=== PATIENT | female | born 1960 | race Caucasian/White ===

== ENCOUNTER 2018-09-15 19:14 | Emergency (ER) | payer BC ==
--- NOTE | 2018-09-15 20:12 | EDM.PDOC ---
ED HPI GENERAL MEDICAL PROBLEM - General Chief Complaint: Gastrointestinal Problem Stated Complaint: COUGHING UP BLOOD Time Seen by Provider: 09/15/18 19:40 Source of Information: Reports: Patient, Family History Limitations: Reports: No Limitations - History of Present Illness INITIAL COMMENTS - FREE TEXT/NARRATIVE: c/o cough up blood pt with a chronic smoker's cough, inc'd x 2d, at 4 PM she coughed up some pink sputum smokes 1.5 ppd, h/o pneumonia in past has had flu vax yearly, has had pneumonia vax no f/c/d, no rhinorrhea had pain at her L ribs posteriorly since last night, inc'd with cough, had massage her back earlier today h/o various pain complaints in past PMH: h/o htn, no other CV hx PSH includes ventral hernia x 7 including mesh SH: on disability, 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 labs: did have BS >200 the last 2 times it was checked Back pain Pain Score (Numeric/FACES): 7 - Related Data Allergies Allergy/AdvReac Type Severity Reaction Status Date / Time morphine Allergy Itching Verified 09/15/18 19:30 Home Meds: Home Meds Omeprazole Magnesium [Prilosec Otc] 20 mg PO DAILY 06/01/13 [History] rOPINIRole HCl [Requip] 1 mg PO TID 06/01/13 [History] Lisinopril 10 mg PO DAILY 04/21/16 [History] Cyclobenzaprine [Flexeril] 10 mg PO TID 07/30/16 [History] Celecoxib 200 mg PO DAILY 09/15/18 [History] DULoxetine [Cymbalta] 30 mg PO DAILY 09/15/18 [History] Dicyclomine [Bentyl] 20 mg PO QID PRN 09/15/18 [History] Hyoscyamine [Levsin] 0.375 mg PO BID 09/15/18 [History] Ondansetron HCl [Zofran] 4 mg PO Q4H PRN 09/15/18 [History] Past Medical History HEENT History: Reports: Impaired Vision Cardiovascular History: Reports: Other (See Below) Other Cardiovascular History: states that has hx of chest pein before but not as intense as of today. Other Gastrointestinal History: Pt stated she has several ulcers [employer] History: Reports: - Past Surgical History HEENT Surgical History: Reports: Tonsillectomy GI Surgical History: Reports: Bariatric Procedure, Cholecystectomy, Hernia Repair/Other, Other (See Below) Other GI Surgeries/Procedures: Gastric revision Female Surgical History: Reports: Hysterectomy Social & Family History - Family History Family Medical History: Noncontributory Cardiac: Reports: Other (See Below) Other Cardiac Family History: states that cardiac problems run in their family. - Tobacco Use Smoking Status *Q: Current Every Day Smoker Years of Tobacco use: 44 Packs/Tins Daily: 1.5 - Caffeine Use Caffeine Use: Reports: Coffee - Recreational Drug Use Recreational Drug Use: No - Living Situation & Occupation Living situation: Reports: ED ROS GENERAL - Review of Systems Review Of Systems: See Below Constitutional: Reports: No Symptoms. Denies: Fever, Chills, Malaise, Weakness , Diaphoresis HEENT: Reports: No Symptoms Respiratory: Reports: Pleuritic Chest Pain, Cough, Hemoptysis Cardiovascular: Reports: No Symptoms Endocrine: Reports: No Symptoms GI/Abdominal: Reports: No Symptoms : Reports: No Symptoms Musculoskeletal: Reports: No Symptoms Skin: Reports: No Symptoms Neurological: Reports: No Symptoms Psychiatric: Reports: No Symptoms Hematologic/Lymphatic: Reports: No Symptoms Immunologic: Reports: No Symptoms ED EXAM, GENERAL - Physical Exam Exam: See Below Exam Limited By: No Limitations General Appearance: Alert, WD/WN, No Apparent Distress, Other (alert, no cough observed, no dyspnea, mild tachy, talk complete sentences, no splinting) Eye Exam: Bilateral Eye: EOMI, Normal Inspection, PERRL Nose: Normal Mucosa, Other (some crusting mucus at L nares). No: Nasal Swelling Throat/Mouth: Normal Inspection, Normal Lips, Normal Teeth, Normal Gums, Normal Oropharynx, Normal Voice, No Airway Compromise Head: Atraumatic, Normocephalic Neck: Normal Inspection, Supple, Non-Tender, Full Range of Motion. No: Lymphadenopathy (R), Lymphadenopathy (L) Respiratory/Chest: No Respiratory Distress, Other (fair AE, no inc'd exp phase, scattered slight wheeze, no rales) Cardiovascular: Regular Rate, Rhythm, No JVD, No Rub GI/Abdominal: Soft, Non-Tender, No Distention Back Exam: Normal Inspection, Full Range of Motion. No: CVA Tenderness (R), CVA Tenderness (L) Extremities: Normal Inspection, Normal Range of Motion, Non-Tender, Other (3+ edema to knees b/l, trace edema to groin b/l, symmetric) Neurological: Alert, Oriented, CN II-XII Intact, Normal Cognition, No Motor/ Sensory Deficits Psychiatric: Normal Affect, Normal Mood Skin Exam: Warm, Dry, Intact, Normal Color, No Rash Lymphatic: No Adenopathy Course - Vital Signs Last Recorded V/S: Last Vital Signs Temp 36.3 C 09/15/18 22:12 Pulse 111 H 09/15/18 22:12 Resp 18 09/15/18 22:12 BP 92/48 L 09/15/18 22:12 Pulse Ox 96 09/15/18 22:12 - Orders/Labs/Meds Orders: Active Orders 24 hr Category Date Time Status Chest 2V [CR] Stat Exams 09/15/18 19:58 Ordered Chest w wo Cont [CT] Stat Exams 09/15/18 21:03 Ordered Sodium Chloride 0.9% [Saline Flush] Med 09/15/18 20:15 Active 10 ml FLUSH ASDIRECTED PRN EKG 12 Lead [EK] Routine Ther 09/15/18 19:58 Ordered Medication Orders Sodium Chloride (Saline Flush) 10 ml FLUSH ASDIRECTED PRN PRN Reason: IV Use Last Admin: 09/15/18 21:12 Dose: 10 ml Admin: 09/15/18 20:15 Dose: 10 ml Labs: Laboratory Tests 09/15/18 09/15/18 09/15/18 Range/Units 20:17 20:17 20:17 WBC 6.6 (4.5-12.0) X10-3/uL RBC 4.39 (3.23-5.20) x10(6)uL Hgb 13.4 (11.5-15.5) g/dL Hct 40.0 (30.0-51.3) % MCV 91.1 (80-96) fL MCH 30.6 (27.7-33.6) pg MCHC 33.6 (32.2-35.4) g/dL RDW 13.7 (11.5-15.5) % Plt Count 237 (125-369) X10(3)uL MPV 7.6 (7.4-10.4) fL Add Manual Diff Yes Neutrophils % (Manual) 89 H (46-82) % Lymphocytes % (Manual) 4 L (13-37) % Monocytes % (Manual) 7 (4-12) % PT 10.4 (8.7-11.1) INR 1.07 (0.89-1.13) D-Dimer, Quantitative 0.90 H (0.0-0.59) mg/LFEU Sodium 138 (135-145) mmol/L Potassium 3.6 (3.5-5.3) mmol/L Chloride 104 (100-110) mmol/L Carbon Dioxide 22 (21-32) mmol/L BUN 18 (7-18) mg/dL Creatinine 0.9 (0.55-1.02) mg/dL Est Cr Clr Drug Dosing 69.14 mL/min Estimated GFR (MDRD) > 60 (>60) BUN/Creatinine Ratio 20.0 (9-20) Glucose 156 H (80-116) mg/dL Calcium 7.7 L (8.6-10.2) mg/dL Total Bilirubin 0.3 (0.1-1.3) mg/dL AST 14 (5-25) IU/L ALT 12 (12-36) U/L Alkaline Phosphatase 81 (56-112) IU/L Troponin I (<0.017-0.056) ng/mL C-Reactive Protein (0.5-0.9) mg/dL NT-Pro-B Natriuret Pep (<=125) pg/mL Total Protein 5.1 L (6.0-8.0) g/dL Albumin 2.0 L (3.5-5.2) g/dL Globulin 3.1 g/dL Albumin/Globulin Ratio 0.7 // Range/Units 20:17 WBC (4.5-12.0) X10-3/uL RBC (3.23-5.20) x10(6)uL Hgb (11.5-15.5) g/dL Hct (30.0-51.3) % MCV (80-96) fL MCH (27.7-33.6) pg MCHC (32.2-35.4) g/dL RDW (11.5-15.5) % Plt Count (125-369) X10(3)uL MPV (7.4-10.4) fL Add Manual Diff Neutrophils % (Manual) (46-82) % Lymphocytes % (Manual) (13-37) % Monocytes % (Manual) (4-12) % PT (8.7-11.1) INR (0.89-1.13) D-Dimer, Quantitative (0.0-0.59) mg/LFEU Sodium (135-145) mmol/L Potassium (3.5-5.3) mmol/L Chloride (100-110) mmol/L Carbon Dioxide (21-32) mmol/L BUN (7-18) mg/dL Creatinine (0.55-1.02) mg/dL Est Cr Clr Drug Dosing mL/min Estimated GFR (MDRD) (>60) BUN/Creatinine Ratio (9-20) Glucose (80-116) mg/dL Calcium (8.6-10.2) mg/dL Total Bilirubin (0.1-1.3) mg/dL AST (5-25) IU/L ALT (12-36) U/L Alkaline Phosphatase (56-112) IU/L Troponin I 0.019 (<0.017-0.056) ng/mL C-Reactive Protein 6.1 H* (0.5-0.9) mg/dL NT-Pro-B Natriuret Pep 875 H (<=125) pg/mL Total Protein (6.0-8.0) g/dL Albumin (3.5-5.2) g/dL Globulin g/dL Albumin/Globulin Ratio Meds: Medications Generic Name Dose Route Start Last Admin Trade Name Freq PRN Reason Stop Dose Admin Sodium Chloride 10 ml 09/15/18 20:15 09/15/18 21:12 Saline Flush FLUSH 10 ml ASDIRECTED PRN Administration IV Use Discontinued Medications Generic Name Dose Route Start Last Admin Trade Name Freq PRN Reason Stop Dose Admin Azithromycin 500 mg 09/15/18 22:08 09/15/18 22:29 Zithromax PO 09/15/18 22:09 500 mg ONETIME ONE Administration Ceftriaxone Sodium 1 gm 09/15/18 22:27 09/15/18 22:29 Rocephin IVPUSH 09/15/18 22:28 1 gm ONETIME ONE Administration Sodium Chloride 1,000 mls @ 999 mls/hr 09/15/18 20:24 09/15/18 20:34 Normal Saline IV 09/15/18 21:24 999 mls/hr .BOLUS ONE Administration Sodium Chloride 1,000 mls @ 999 mls/hr 09/15/18 20:08 09/15/18 22:23 Normal Saline IV 09/15/18 21:08 999 mls/hr .BOLUS ONE Administration Ceftriaxone Sodium 1 gm/ 100 mls @ 200 mls/hr 09/15/18 22:07 09/15/18 22:30 Sodium Chloride IVPUSH 09/15/18 22:36 Not Given ONETIME ONE Iopamidol 75 ml 09/15/18 21:03 09/15/18 21:27 Isovue-370 (76%) IV 09/15/18 21:04 75 ml ONETIME ONE Administration Ketorolac Tromethamine 30 mg 09/15/18 22:20 09/15/18 22:28 Toradol IVPUSH 09/15/18 22:21 30 mg ONETIME ONE Administration Lorazepam 0.5 mg 09/15/18 21:07 09/15/18 21:11 Ativan IVPUSH 09/15/18 21:08 0.5 mg ONETIME ONE Administration - Re-Assessments/Exams Free Text/Narrative Re-Assessment/Exam: 09/15/18 22:12 CxR 2v with [place] density of 70 x 72 mm suspicious for CA in setting of no fever and normal WBC chest CT with and without contrast shows consiolidation nodularity suspicious for pneumonia as per radiologist altho pul hemorrhage and malignancy are considerations will send to [facility] for pul consult for possible bronchoscopy and for CV consults for elevated BNP pt and agree will give azithro 500 mg PO and ceftriaxone 1 gm IV here call placed to [facility] 09/15/18 22:44 d/w Dr Lyons who accepted pt in transfer to [facility] Departure - Departure Time of Disposition: 22:45 Disposition: DC/Tfer to Acute Hospital 02 Condition: Fair Clinical Impression: Left upper lobe consolidation, Hypoxia, Elevated brain natriuretic peptide (BNP ) level, Peripheral edema, Hemoptysis, Current smoker, Hypoalbuminemia, Left shift, Elevated C-reactive protein (CRP) - Discharge Information *PRESCRIPTION DRUG MONITORING PROGRAM REVIEWED*: Not Applicable *COPY OF PRESCRIPTION DRUG MONITORING REPORT IN PATIENT ALIN: Not Applicable Referrals: Abhishek De La Torre MD [Primary Care Provider] - Forms: ED Department Discharge - My Orders Last 24 Hours: My Active Orders 09/15/18 19:58 Chest 2V [CR] Stat EKG 12 Lead [EK] Routine 09/15/18 20:15 Sodium Chloride 0.9% [Saline Flush] 10 ml FLUSH ASDIRECTED PRN 09/15/18 21:03 Chest w wo Cont [CT] Stat - Assessment/Plan Last 24 Hours: My Active Orders 09/15/18 19:58 Chest 2V [CR] Stat EKG 12 Lead [EK] Routine 09/15/18 20:15 Sodium Chloride 0.9% [Saline Flush] 10 ml FLUSH ASDIRECTED PRN 09/15/18 21:03 Chest w wo Cont [CT] Stat
[2018-09-15] MEDS: Sodium Chloride 0.9% 10 ML Syringe FLUSH PRN ×2 (20:15→21:12)
[2018-09-15] MEDS ORDERED: Sodium Chloride 0.9% 1,000 ML IV ONE ×2 (20:24→23:35)
[2018-09-15] MEDS ORDERED: Iopamidol 755 Mg/ML 75 ML Bottle IV ONE (21:03)
[2018-09-15] MEDS ORDERED: LORazepam 2 MG/ML SDV IVPUSH ONE (21:07)
[2018-09-15] MEDS: Sodium Chloride 0.9% 1,000 ML IV ONE ×2 (21:13→22:23)
[2018-09-15] MEDS ORDERED: cefTRIAXone 1 GM in Sodium Chloride 0.9% 100 ML IVPUSH ONE (22:07)
[2018-09-15] MEDS ORDERED: Azithromycin 500 MG Tab PO ONE (22:08)
[2018-09-15] MEDS ORDERED: Ketorolac 30 MG/ML SDV IVPUSH ONE (22:20)
[2018-09-15] MEDS ORDERED: cefTRIAXone 1 GM Vial IVPUSH ONE (22:27)
[2018-09-15 23:49] VITALS: BP 89/58
--- NOTE | 2018-09-16 15:04 | CR ---
INDICATION: Hemoptysis. CHEST: PA and lateral views of the chest with two PA views were obtained, 09/15, and compared with 10/02/17 and 04/21/16. There is now noted infiltration, which is consolidating in the posterior basilar segment of the left upper lobe and also the anterior basilar perihilar anteriorly. Followup to clearing is recommended to exclude a central lesion. There is a slight bulge at the aortopulmonary window, which does appear to be new, compared with the previous study. CT of the chest may be warranted if this infiltrate does not rapidly resolve with treatment. No definite pleuritis was seen. No other active areas of infiltrate were identified. The heart remains normal in size and shape. The aorta is tortuous with calcification in the arch and descending portion. Bony structures appear to be grossly intact, except to note a mild dextroconvex scoliosis of the lower middle thoracic spine. IMPRESSION: Fairly extensive areas of infiltration, mostly in the posterior basilar segment area of the left upper lobe but also anteriorly in the anterior basilar segment. The presence of a bulge at the aortopulmonary window on the left raises question of a central lesion. Followup is recommended, and if rapid clearing does not occur, CT without and with IV contrast is recommended. MTDD
== END 2018-09-16 00:06 ==
LOC: FB.ED 19:14
DX: J18.1 Lobar pneumonia, unspecified organism (principal); R04.2 Hemoptysis; R09.02 Hypoxemia; R79.89 Other specified abnormal findings of blood chemistry; R60.9 Edema, unspecified; E88.09 Other disorders of plasma-protein metabolism, not elsewhere classified; R79.82 Elevated C-reactive protein (CRP); F17.210 Nicotine dependence, cigarettes, uncomplicated; Z88.5 Allergy status to narcotic agent; Z79.899 Other long term (current) drug therapy
CPT/HCPCS: 36415; 71046; 71270; 80053; 83880; 84484; 85025; 85379; 85610; 86140; 87804 ×2; 93005; 96361; 96374; 96375; 99285; A9270; J0696; J1885; J2060; J7030 ×3; Q9967

== ENCOUNTER 2018-10-13 07:19 | Emergency (ER) | payer BC ==
[2018-10-13] MEDS ORDERED: Rocuronium 100 MG/10 ML MDV IV ONE (07:20)
[2018-10-13] MEDS ORDERED: Furosemide 40 MG/4 ML VIAL ONE ×3 (07:28→08:14)
[2018-10-13] MEDS ORDERED: Etomidate 2 MG/ML 20 ML SDV IVPUSH ONE (07:30)
[2018-10-13] MEDS ORDERED: Albuterol/Ipratropium 3.0-0.5 MG/3 ML Neb Soln NEB ONE (07:30)
[2018-10-13] MEDS ORDERED: Furosemide 40 MG/4 ML VIAL IVPUSH ONE ×3 (07:30→08:15)
[2018-10-13] MEDS ORDERED: Rocuronium Bromide 50 MG/5 ML Syringe IVPUSH ONE (07:30)
[2018-10-13] MEDS ORDERED: Albuterol/Ipratropium 3.0-0.5 MG/3 ML Neb Soln ONE (07:49)
[2018-10-13] MEDS ORDERED: Dextrose 5%-0.225% NaCl w/KCl 1,000 ML IV SCH (08:00)
[2018-10-13] MEDS ORDERED: Midazolam 1 MG/ML 2 ML SDV ONE (08:06)
[2018-10-13] MEDS ORDERED: Albuterol 8 GM Inhaler INH ONE (08:08)
[2018-10-13] MEDS ORDERED: Midazolam 1 MG/ML 2 ML SDV IVPUSH ONE (08:08)
[2018-10-13] MEDS ORDERED: fentaNYL 100 MCG/2 ML SDV ONE (08:17)
[2018-10-13] MEDS ORDERED: Cefepime 2 GM Vial IVPUSH ONE (08:17)
[2018-10-13] MEDS ORDERED: fentaNYL 100 MCG/2 ML SDV IVPUSH ONE (08:18)
[2018-10-13] MEDS ORDERED: Potassium Chloride 20 MEQ in Premix Bag 1 BAG IV ONE (08:40)
--- NOTE | 2018-10-13 08:41 | EDM.PDOC ---
ED HPI GENERAL MEDICAL PROBLEM - General Stated Complaint: SOB COUGHING Time Seen by Provider: 10/13/18 07:20 Source of Information: Reports: Patient History Limitations: Reports: Respiratory Distress - History of Present Illness INITIAL COMMENTS - FREE TEXT/NARRATIVE: c/o sob and coughing up blood pt in ICU at [facility] x 2w, intubated, dx of sepsis, home x 10d, on O2 for the first time inc'd SOB during night per , talking in 4-5 word sentences on arrival and tripoding, later after intubation pt brought up pink frothy sputum pt electively intubated on arrival with 7/0 ET and [place] scope on first pass with good AE b/l after 30 mg etomidate IV and 100 mg succinylcholine IV, ET secured, end CO2 30 anesthesia arrived shortly after intubation and provided additional resp management, ET tube 2.5 cm above arnel CxR with old large infiltrate at [place] and new large infiltrate at RUL has peribronchial cuffing and smallest amount of blunting at the CVAs bhardwaj placed with 200 cc urine output, had another 150 UO after furosemide 40 mg IV x 2 NG placed given additional furosemide 80 mg IV, pt had a total of 500 cc UO at time of transfer at 8:40 AM d/w Dr Jurado at ICU at [facility] who had taken care of her previously BC x 2 obtained prior to giving her cefepime 2 gm IV venous pH 7.24 and pCO2 56 obtained just prior to intubation BP inc'd initial, improved to 138/74 after meds and intubation, at 150/80 at time of transfer max HR 129, HR 115 at time of transfer KCl 20 meq hung at rate of 10 meq/hr for K 2.8 - Related Data Allergies Allergy/AdvReac Type Severity Reaction Status Date / Time morphine Allergy Itching Verified 09/15/18 19:30 Home Meds: Home Meds Omeprazole Magnesium [Prilosec Otc] 20 mg PO DAILY 06/01/13 [History] rOPINIRole HCl [Requip] 1 mg PO TID 06/01/13 [History] Lisinopril 10 mg PO DAILY 04/21/16 [History] Cyclobenzaprine [Flexeril] 10 mg PO TID 07/30/16 [History] Celecoxib 200 mg PO DAILY 09/15/18 [History] DULoxetine [Cymbalta] 30 mg PO DAILY 09/15/18 [History] Dicyclomine [Bentyl] 20 mg PO QID PRN 09/15/18 [History] Hyoscyamine [Levsin] 0.375 mg PO BID 09/15/18 [History] Ondansetron HCl [Zofran] 4 mg PO Q4H PRN 09/15/18 [History] Past Medical History HEENT History: Reports: Impaired Vision Cardiovascular History: Reports: Other (See Below) Other Cardiovascular History: states that has hx of chest pein before but not as intense as of today. Other Gastrointestinal History: Pt stated she has several ulcers [employer] History: Reports: - Past Surgical History HEENT Surgical History: Reports: Tonsillectomy GI Surgical History: Reports: Bariatric Procedure, Cholecystectomy, Hernia Repair/Other, Other (See Below) Other GI Surgeries/Procedures: Gastric revision Female Surgical History: Reports: Hysterectomy Social & Family History - Family History Family Medical History: Noncontributory Cardiac: Reports: Other (See Below) Other Cardiac Family History: states that cardiac problems run in their family. - Caffeine Use Caffeine Use: Reports: Coffee - Living Situation & Occupation Living situation: Reports: ED ROS GENERAL - Review of Systems Review Of Systems: See Below Constitutional: Reports: Malaise, Weakness, Fatigue, Decreased Appetite. Denies : Fever, Night Sweats HEENT: Reports: No Symptoms Respiratory: Reports: Shortness of Breath, Wheezing Cardiovascular: Reports: No Symptoms. Denies: Chest Pain Endocrine: Reports: No Symptoms GI/Abdominal: Reports: No Symptoms : Reports: No Symptoms Musculoskeletal: Reports: No Symptoms Skin: Reports: No Symptoms Neurological: Reports: No Symptoms Psychiatric: Reports: No Symptoms Hematologic/Lymphatic: Reports: No Symptoms Immunologic: Reports: No Symptoms ED EXAM, GENERAL - Physical Exam Exam: See Below Exam Limited By: Respiratory Distress General Appearance: Alert, WD/WN, Moderate Distress, Other (talk 4-5 word sentences, tripoding, using accessory muscles, struggling to breath, pt electively intubated when no improvement after Duoneb begun, exp phase 2x insp phase with 1 sec exp wheeze that decreased to 1:1 ratio after intubation, frothy pink sputum from ET tube, coarse BS b/l, inc'd AE after intubation, did better on PEEP altho bagged easily, had retractions and accessory muscles and pursed lips on arrival) Ears: Normal External Exam, Normal Canal Nose: Normal Inspection, Normal Mucosa, No Blood Throat/Mouth: Normal Inspection, Normal Lips, Normal Teeth, Normal Gums, Normal Oropharynx, Normal Voice Head: Atraumatic, Normocephalic Neck: Normal Inspection, Supple, Non-Tender, Full Range of Motion. No: Lymphadenopathy (R), Lymphadenopathy (L) Respiratory/Chest: Respiratory Distress, Decreased Breath Sounds, Wheezing, Accessory Muscle Use, Retractions, Prolonged Expiration, Other (as above) Cardiovascular: No Edema, No Murmur, Other (tachy, regular, no ectopy on monitor when in ED) GI/Abdominal: Soft, Non-Tender, No Distention Back Exam: Normal Inspection, Full Range of Motion, NT Extremities: Normal Inspection, Normal Range of Motion, Non-Tender, No Pedal Edema Neurological: Alert, Normal Cognition, No Motor/Sensory Deficits Psychiatric: Anxious Skin Exam: Warm, Dry, Intact, Normal Color, No Rash Lymphatic: No Adenopathy Course - Orders/Labs/Meds Orders: Active Orders 24 hr Category Date Time Status EKG Documentation Completion [RC] ASDIRECTED Care 10/13/18 08:14 Ordered Chest 1V Frontal [CR] Stat Exams 10/13/18 08:06 Taken CULTURE BLOOD [BC] Urgent Lab 10/13/18 08:15 Ordered CULTURE BLOOD [BC] Urgent Lab 10/13/18 08:15 Ordered CULTURE URINE [RM] Stat Lab 10/13/18 09:49 Ordered Blood Culture x2 Reflex Set [OM.PC] Urgent Oth 10/13/18 08:15 Ordered EKG 12 Lead [EK] Routine Ther 10/13/18 08:14 Ordered Labs: Laboratory Tests 10/13/18 10/13/18 10/13/18 Range/Units 07:29 07:29 07:29 WBC 15.7 H (4.5-12.0) X10-3/uL RBC 3.72 (3.23-5.20) x10(6)uL Hgb 10.6 L (11.5-15.5) g/dL Hct 32.6 (30.0-51.3) % MCV 87.6 (80-96) fL MCH 28.6 (27.7-33.6) pg MCHC 32.7 (32.2-35.4) g/dL RDW 13.1 (11.5-15.5) % Plt Count 523 H (125-369) X10(3)uL MPV 6.3 L (7.4-10.4) fL Add Manual Diff Yes Neutrophils % (Manual) 80 (46-82) % Band Neutrophils % 1 (0-6) % Lymphocytes % (Manual) 14 (13-37) % Monocytes % (Manual) 4 (4-12) % Eosinophils % (Manual) 1 (0-5) % POC VBG pH 7.24 L (7.31-7.41) POC VBG pCO2 56.5 H (41-51) mmHG POC VBG HCO3 24.5 (23-28) mmol/L POC VBG Total CO2 26 (24-29) mmol/L POC VBG Base Excess -3 L (-2-3) mmol/L Sodium 138 (135-145) mmol/L Potassium 2.8 L* (3.5-5.3) mmol/L Chloride 102 (100-110) mmol/L Carbon Dioxide 25 (21-32) mmol/L BUN 19 H (7-18) mg/dL Creatinine 0.7 (0.55-1.02) mg/dL Est Cr Clr Drug Dosing TNP Estimated GFR (MDRD) > 60 (>60) BUN/Creatinine Ratio 27.1 H (9-20) Glucose 187 H (80-116) mg/dL Lactic Acid (0.4-2.2) mmol/L Calcium 8.0 L (8.6-10.2) mg/dL Magnesium (1.8-2.5) mg/dL Total Bilirubin 0.5 (0.1-1.3) mg/dL AST 14 (5-25) IU/L ALT 9 L D (12-36) U/L Alkaline Phosphatase 160 H (56-112) IU/L Troponin I (<0.017-0.056) ng/mL C-Reactive Protein (0.5-0.9) mg/dL NT-Pro-B Natriuret Pep (<=125) pg/mL Total Protein 7.0 (6.0-8.0) g/dL Albumin 2.5 L (3.5-5.2) g/dL Globulin 4.5 g/dL Albumin/Globulin Ratio 0.6 Urine Color (YELLOW) Urine Appearance (CLEAR) Urine pH (5.0-6.5) Ur Specific [place] (1.010-1.025) Urine Protein (NEGATIVE) mg/dL Urine Glucose (UA) (NORMAL) mg/dL Urine Ketones (NEGATIVE) mg/dL Urine Occult Blood (NEGATIVE) Urine Nitrite (NEGATIVE) Urine Bilirubin (NEGATIVE) Urine Urobilinogen (NEGATIVE) mg/dL Ur Leukocyte Esterase (NEGATIVE) Urine RBC (0-5) Urine WBC (0-5) Ur Squamous Epith Cells (NS,R,O) Urine Bacteria (NS) 10/13/18 10/13/18 10/13/18 Range/Units 07:29 07:29 07:29 WBC (4.5-12.0) X10-3/uL RBC (3.23-5.20) x10(6)uL Hgb (11.5-15.5) g/dL Hct (30.0-51.3) % MCV (80-96) fL MCH (27.7-33.6) pg MCHC (32.2-35.4) g/dL RDW (11.5-15.5) % Plt Count (125-369) X10(3)uL MPV (7.4-10.4) fL Add Manual Diff Neutrophils % (Manual) (46-82) % Band Neutrophils % (0-6) % Lymphocytes % (Manual) (13-37) % Monocytes % (Manual) (4-12) % Eosinophils % (Manual) (0-5) % POC VBG pH (7.31-7.41) POC VBG pCO2 (41-51) mmHG POC VBG HCO3 (23-28) mmol/L POC VBG Total CO2 (24-29) mmol/L POC VBG Base Excess (-2-3) mmol/L Sodium (135-145) mmol/L Potassium (3.5-5.3) mmol/L Chloride (100-110) mmol/L Carbon Dioxide (21-32) mmol/L BUN (7-18) mg/dL Creatinine (0.55-1.02) mg/dL Est Cr Clr Drug Dosing Estimated GFR (MDRD) (>60) BUN/Creatinine Ratio (9-20) Glucose (80-116) mg/dL Lactic Acid (0.4-2.2) mmol/L Calcium (8.6-10.2) mg/dL Magnesium 1.6 L (1.8-2.5) mg/dL Total Bilirubin (0.1-1.3) mg/dL AST (5-25) IU/L ALT (12-36) U/L Alkaline Phosphatase (56-112) IU/L Troponin I < 0.017 L (<0.017-0.056) ng/mL C-Reactive Protein 11.2 H* (0.5-0.9) mg/dL NT-Pro-B Natriuret Pep 2143 H* (<=125) pg/mL Total Protein (6.0-8.0) g/dL Albumin (3.5-5.2) g/dL Globulin g/dL Albumin/Globulin Ratio Urine Color (YELLOW) Urine Appearance (CLEAR) Urine pH (5.0-6.5) Ur Specific [place] (1.010-1.025) Urine Protein (NEGATIVE) mg/dL Urine Glucose (UA) (NORMAL) mg/dL Urine Ketones (NEGATIVE) mg/dL Urine Occult Blood (NEGATIVE) Urine Nitrite (NEGATIVE) Urine Bilirubin (NEGATIVE) Urine Urobilinogen (NEGATIVE) mg/dL Ur Leukocyte Esterase (NEGATIVE) Urine RBC (0-5) Urine WBC (0-5) Ur Squamous Epith Cells (NS,R,O) Urine Bacteria (NS) 10/13/18 10/13/18 10/13/18 Range/Units 07:29 07:34 07:55 WBC (4.5-12.0) X10-3/uL RBC (3.23-5.20) x10(6)uL Hgb (11.5-15.5) g/dL Hct (30.0-51.3) % MCV (80-96) fL MCH (27.7-33.6) pg MCHC (32.2-35.4) g/dL RDW (11.5-15.5) % Plt Count (125-369) X10(3)uL MPV (7.4-10.4) fL Add Manual Diff Neutrophils % (Manual) (46-82) % Band Neutrophils % (0-6) % Lymphocytes % (Manual) (13-37) % Monocytes % (Manual) (4-12) % Eosinophils % (Manual) (0-5) % POC VBG pH 7.24 L (7.31-7.41) POC VBG pCO2 56.5 H (41-51) mmHG POC VBG HCO3 24.5 (23-28) mmol/L POC VBG Total CO2 26 (24-29) mmol/L POC VBG Base Excess -3 L (-2-3) mmol/L Sodium (135-145) mmol/L Potassium (3.5-5.3) mmol/L Chloride (100-110) mmol/L Carbon Dioxide (21-32) mmol/L BUN (7-18) mg/dL Creatinine (0.55-1.02) mg/dL Est Cr Clr Drug Dosing Estimated GFR (MDRD) (>60) BUN/Creatinine Ratio (9-20) Glucose (80-116) mg/dL Lactic Acid 1.4 (0.4-2.2) mmol/L Calcium (8.6-10.2) mg/dL Magnesium (1.8-2.5) mg/dL Total Bilirubin (0.1-1.3) mg/dL AST (5-25) IU/L ALT (12-36) U/L Alkaline Phosphatase (56-112) IU/L Troponin I (<0.017-0.056) ng/mL C-Reactive Protein (0.5-0.9) mg/dL NT-Pro-B Natriuret Pep (<=125) pg/mL Total Protein (6.0-8.0) g/dL Albumin (3.5-5.2) g/dL Globulin g/dL Albumin/Globulin Ratio Urine Color Yellow (YELLOW) Urine Appearance Slightly cloudy (CLEAR) Urine pH 5.0 (5.0-6.5) Ur Specific [place] 1.020 (1.010-1.025) Urine Protein Trace (NEGATIVE) mg/dL Urine Glucose (UA) Normal (NORMAL) mg/dL Urine Ketones Negative (NEGATIVE) mg/dL Urine Occult Blood Trace (NEGATIVE) Urine Nitrite Positive H (NEGATIVE) Urine Bilirubin Negative (NEGATIVE) Urine Urobilinogen Normal (NEGATIVE) mg/dL Ur Leukocyte Esterase Negative (NEGATIVE) Urine RBC 0-5 (0-5) Urine WBC 5-10 H (0-5) Ur Squamous Epith Cells Rare (NS,R,O) Urine Bacteria Many H (NS) Meds: Medications Discontinued Medications Generic Name Dose Route Start Last Admin Trade Name Mac PRN Reason Stop Dose Admin Albuterol/Ipratropium Confirm 10/13/18 07:49 Duoneb 3.0-0.5 Mg/3 Ml Administered 10/13/18 07:50 Dose 3 ml .ROUTE .STK-MED ONE Cefepime HCl 2 gm 10/13/18 08:17 Maxipime IVPUSH 10/13/18 08:18 ONETIME ONE Fentanyl Confirm 10/13/18 08:17 Sublimaze Administered 10/13/18 08:18 Dose 100 mcg .ROUTE .STK-MED ONE Furosemide Confirm 10/13/18 07:28 Lasix Administered 10/13/18 07:29 Dose 40 mg .ROUTE .STK-MED ONE Furosemide Confirm 10/13/18 07:54 Lasix Administered 10/13/18 07:55 Dose 40 mg .ROUTE .STK-MED ONE Furosemide Confirm 10/13/18 08:14 Lasix Administered 10/13/18 08:15 Dose 80 mg .ROUTE .STK-MED ONE Midazolam HCl Confirm 10/13/18 08:06 Versed 1 Mg/Ml Administered 10/13/18 08:07 Dose 2 mg .ROUTE .STK-MED ONE Departure - Departure Time of Disposition: 08:50 Disposition: DC/Tfer to Acute Hospital 02 Condition: Critical Clinical Impression: Acute respiratory failure with hypoxia and hypercapnia, Acute pulmonary edema, Pneumonia, Pulmonary edema, Acute decompensated heart failure, Hypokalemia, Elevated C-reactive protein (CRP), Urinary tract infection - Discharge Information *PRESCRIPTION DRUG MONITORING PROGRAM REVIEWED*: Not Applicable *COPY OF PRESCRIPTION DRUG MONITORING REPORT IN PATIENT ALIN: Not Applicable - My Orders Last 24 Hours: My Active Orders 10/13/18 08:06 Chest 1V Frontal [CR] Stat 10/13/18 08:14 EKG Documentation Completion [RC] ASDIRECTED EKG 12 Lead [EK] Routine 10/13/18 08:15 CULTURE BLOOD [BC] Urgent CULTURE BLOOD [BC] Urgent Blood Culture x2 Reflex Set [OM.PC] Urgent 10/13/18 09:49 CULTURE URINE [RM] Stat - Assessment/Plan Last 24 Hours: My Active Orders 10/13/18 08:06 Chest 1V Frontal [CR] Stat 10/13/18 08:14 EKG Documentation Completion [RC] ASDIRECTED EKG 12 Lead [EK] Routine 10/13/18 08:15 CULTURE BLOOD [BC] Urgent CULTURE BLOOD [BC] Urgent Blood Culture x2 Reflex Set [OM.PC] Urgent 10/13/18 09:49 CULTURE URINE [RM] Stat
--- NOTE | 2018-10-13 09:29 | PCM.SN ---
- Free Text/Narrative Note: [facility] Date: 10/13/2018 Time: 3268 to 4117 I was called to the ER for an unstable patient requiring emergency intubation. Please see the ER physician's note for events prior to my arrival. Upon my arrival the patient was already intubated by the ER physician, positive ETCO2, tachycardia of 110 plus, SpO2 100% and HTN of 175/95. I was asked for ventilation assessment, sedation, and hemodynamic monitoring assessment by the ER physician. Ventilation Assessment / Control: I performed multiple breath sound assessment with starting wheezing / rales bilaterally and frothy blood tinged sputum up the ETT. I did reposition the 7.0 ETT to 21 cm to the lips and secured it. Manual hand ventilation was done to keep the ETCO2 at around 30. I did administer Proventil per the ETT twice with good results [much less wheezing]. The CXR showed good ETT placement above the Purvi. I had nursing suction out the ETT twice also with some pink frothy sputum return. This continued until [facility] arrived. Sedation: The patient continued to be hypertensive even after the intubation and decrease in her work of breathing. I ordered 2mg's of Versed and 50 mcg's of Fentanyl to be given IV. This did bring her systolic down to 135 and her HR to 105. No further sedation was given until the [facility] team started a Propofol infusion. Hemodynamics: Please see the nursing documentation. I did monitor her response to hand ventilation / sedation. She was never hypotensive. Her blood pressure and HR remained controlled. I did make a suggestion to the ER physician for more IV Lasix [80 mg] which he did. Her urine output was never excessive. Her pupils were always 2mm bilaterally but extremely sluggish to light. This patient remained stable for transport intubated. Total time with this patient was 66 minutes. Thank you for requesting my service. JEREMY Zavala CRNA
[2018-10-13 14:56] VITALS: BP 182/148
== END 2018-10-13 08:50 ==
LOC: FB.ED 07:19
DX: J96.02 Acute respiratory failure with hypercapnia (principal); J81.0 Acute pulmonary edema; J18.9 Pneumonia, unspecified organism; I50.9 Heart failure, unspecified; R79.82 Elevated C-reactive protein (CRP); E87.6 Hypokalemia; N18.9 Chronic kidney disease, unspecified; Z88.5 Allergy status to narcotic agent; Z79.899 Other long term (current) drug therapy
CPT/HCPCS: 31500; 36415; 51702; 71045; 80053; 81001; 82803; 83605; 83735; 83880; 84484; 85025; 86140; 87040; 87077; 87086; 87088; 87186; 93005; 94640; 96365; 96375; 96376; 99285; A9270; J0692; J1940; J2250; J3010; J3480; J3490; J7620-GY